=== PATIENT | male | born 1985 | race Caucasian/White ===

== ENCOUNTER 2017-01-25 07:05 | Emergency (ER) | payer BC ==
[2017-01-25 07:17] VITALS: BP 117/78
[2017-01-25] MEDS ORDERED: Naproxen TAB* 250 MG PO ONE (07:30)
--- NOTE | 2017-01-25 07:30 | UC ---
Back Pain HPI - HPI Summary HPI Summary: 31 yo male with progressively worsening back pain over the past month or so. Does a lot of lifting at work and bending /twisting/lifting increases his pain Now no relief with motrin past few nights unable to sleep due to pain no leg pain no bowel or bladder dysfunction Hx of spinal stenosis - History of Current Complaint Stated Complaint: BACK PAIN Hx Obtained From: Patient Onset/Duration: Gradual Onset, Lasting Weeks Timing: Constant Severity Initially: Mild Severity Currently: Severe Pain Intensity: 8 Pain Scale Used: 0-10 Numeric Back Pain: Is Diffuse Character: Aching, Throbbing, Spasmodic, Stiffness Aggravating: Movement, Lifting, Bending Alleviating: Rest Associated Signs And Symptoms: Positive: Negative - Risk Factors AAA Risk Factors: Negative TAD Risk Factors: Negative Cauda Equina Risk Factors: Negative Epidural Abscess Risk Factors: Negative - Allergies/Home Medications Allergies/Adverse Reactions: Allergies Allergy/AdvReac Type Severity Reaction Status Date / Time Penicillins Allergy Mild Unknown Verified 01/25/17 07:17 Reaction Details PMH/Surg Hx/FS Hx/Imm Hx Previously Healthy: Yes Endocrine History Of: Denies: Diabetes, Thyroid Disease Cardiovascular History Of: Denies: Cardiac Disorders, Hypertension Respiratory History Of: Denies: COPD, Asthma GI/ History Of: Reports: Kidney Stones - LONG TIME AGO Denies: Ulcer - Surgical History Surgical History: Yes Surgery Procedure, Year, and Place: Umbilical hernia - Family History Known Family History: Positive: Diabetes Negative: Cardiac Disease, Hypertension - Social History Alcohol Use: Rare Substance Use Type: None Smoking Status (MU): Never Smoked Tobacco Review of Systems Constitutional: Negative Skin: Negative Eyes: Negative ENT: Negative Respiratory: Negative Cardiovascular: Negative Gastrointestinal: Negative Genitourinary: Negative Motor: Negative Neurovascular: Negative Musculoskeletal: Arthralgia, Myalgia Neurological: Negative Psychological: Negative All Other Systems Reviewed And Are Negative: Yes Physical Exam Triage Information Reviewed: Yes Appearance: Well-Appearing, No Pain Distress, Well-Nourished Vital Signs: Initial Vital Signs Temp 98.3 F 01/25/17 07:10 Pulse 84 01/25/17 07:10 Resp 18 01/25/17 07:10 BP 117/78 01/25/17 07:10 Pulse Ox 97 01/25/17 07:10 Vital Signs Reviewed: Yes Eyes: Positive: Conjunctiva Clear ENT: Positive: Hearing grossly normal. Negative: Nasal congestion, Nasal drainage, Trismus, Muffled/hoarse voice Neck: Positive: Supple, Nontender Respiratory: Positive: Lungs clear, Normal breath sounds, No respiratory distress, No accessory muscle use Cardiovascular: Positive: RRR, No Murmur Musculoskeletal: Positive: ROM Intact, No Edema Neurological: Positive: Alert Psychological Exam: Normal Skin Exam: Normal Back Pain Course/Dx - Differential Dx/Diagnosis Provider Diagnoses: rhomboid strain/spasm. lumbar myofascial strain/spasm Discharge - Discharge Plan Condition: Stable Disposition: HOME Prescriptions: Cyclobenzaprine TAB* [Flexeril TAB*] 5 mg PO TID PRN #30 tab PRN Reason: Spasms HYDROcodone/ACETAMIN 5-325 MG* [[place] 5-325 TAB*] 1 tab PO Q4H PRN #14 tab MDD 2 PRN Reason: Pain - Severe Naproxen [Naproxen 500 MG TABS] 500 mg PO BID PRN #30 tab PRN Reason: Pain Patient Education Materials: Low Back Strain (ED) Forms: *Work Release Referrals: Qi Ann MD [Medical Doctor] - 1 Week Additional Instructions: PT consult schedule a follow up appt with your MD Images Front/Back of Body, Lg ([place]): 1 - bilateral rhomboid and paraspinous muscle spasm, tenderness. decrease ROM ( especially flexion/twisting and side bending. (-) SLR, DTRs equal bilaterally
== END 2017-01-25 07:45 | disposition home or self-care (01) ==
LOC: UCEAST 07:05
DX: S46.919A Strain of unspecified muscle, fascia and tendon at shoulder and upper arm level, unspecified arm, initial encounter (principal); S39.012A Strain of muscle, fascia and tendon of lower back, initial encounter; X50.9XXA Other and unspecified overexertion or strenuous movements or postures, initial encounter; Y93.9 Activity, unspecified; Y92.9 Unspecified place or not applicable; M62.830 Muscle spasm of back; Z88.0 Allergy status to penicillin; Z87.442 Personal history of urinary calculi
CPT/HCPCS: 99212; A9270-GY; G0463

== ENCOUNTER 2018-07-12 00:11 | Emergency (ER) | payer BC, OTHER ==
[2018-07-12] MEDS ORDERED: Ondansetron ODT TAB* 4 MG PO ONE (00:38)
[2018-07-12] MEDS ORDERED: Ketorolac INJ* 15 MG/ML 1 ML VIAL IM ONE (00:38)
[2018-07-12 00:54] LABS: ABS Basophils 0 10^3/ul (0-0.2); ABS Eosinophils 0.1 10^3/ul (0-0.6); ABS Lymphocytes 1.8 10^3/ul (1.0-4.8); ABS Monocytes 0.6 10^3/ul (0-0.8); ABS Neutrophils 7.3 10^3/ul (1.5-7.7); ABS Nucleated RBC 0 10^3/ul; Eosinophil % 1.3 % (0-6); Hematocrit 47 % (42-52); Hemoglobin 16.3 g/dl (14.0-18.0); Lymphocyte % 18.4 % (25-47); Mean Corpuscular HGB Conc 35 g/dl (31-36); Mean Corpuscular Hemoglobin 29 pg (27-31); Mean Corpuscular Volume 82 fL (80-94); Mean Platelet Volume 9.6 um3 (7.4-10.4); Nucleated Red Blood Cells % 0.2; Platelet Count 129 10^3/ul (150-450); Red Blood Count 5.68 10^6/ul (4.00-5.40); Red Cell Distribution Width 13 % (10.5-15); White Blood Count 9.8 10^3/ul (3.5-10.8)
--- NOTE | 2018-07-12 00:58 | ED ---
Abdominal Pain/Male - HPI Summary HPI Summary: This patient is a 33 year old M presenting to [facility] accompanied by his with a chief complaint of sudden onset RLQ pain since 23:40. At onset, the patient rates the pain was 10/10 in severity but he reports that it has improved since arrival. The patient rates the pain 5/10 in severity. Symptoms aggravated by nothing. Symptoms alleviated by nothing. Patient reports nausea and vomiting. Patient denies testicular pain. Patient has hx of kidney stones on the left side but notes that these symptoms are different. - History of Current Complaint Chief Complaint: EDAbdPain Stated Complaint: ABD PAIN Hx Obtained From: Patient Onset/Duration: Sudden Onset, Lasting Minutes, Still Present Severity Initially: Moderate - 10/10 pain Severity Currently: Mild Pain Intensity: 5 Pain Scale Used: 0-10 Numeric Location: Discrete At: RLQ Radiates: No Aggravating Factor(s): Nothing Alleviating Factor(s): Nothing Associated Signs And Symptoms: Positive: Nausea, Vomiting - Allergies/Home Medications Allergies/Adverse Reactions: Allergies Allergy/AdvReac Type Severity Reaction Status Date / Time Penicillins Allergy Unknown Verified 07/12/18 00:16 Reaction Details PMH/Surg Hx/FS Hx/Imm Hx Endocrine/Hematology History: Denies: Hx Diabetes, Hx Thyroid Disease Cardiovascular History: Denies: Hx Hypertension Respiratory History: Denies: Hx Asthma, Hx Chronic Obstructive Pulmonary Disease (COPD), Other Respiratory Problems/Disorders GI History: Reports: Hx Gastroesophageal Reflux Disease - POSSIBLE Denies: Hx Ulcer History: Reports: Hx Kidney Stones - LONG TIME AGO Sensory History: Reports: Hx Contacts or Glasses - GLASSES Opthamlomology History: Reports: Hx Contacts or Glasses - GLASSES - Surgical History Surgery Procedure, Year, and Place: Umbilical hernia Hx Anesthesia Reactions: No Infectious Disease History: No Infectious Disease History: Denies: Hx Clostridium Difficile, Hx Hepatitis, Hx Human Immunodeficiency Virus (HIV), Hx of Known/Suspected MRSA, Hx Shingles, Hx Tuberculosis, Hx Known/ Suspected VRE, Hx Known/Suspected VRSA, History Other Infectious Disease, Traveled Outside the [place] in Last 30 Days - Family History Known Family History: Positive: Diabetes Negative: Cardiac Disease, Hypertension - Social History Alcohol Use: Rare Substance Use Type: Reports: None Smoking Status (MU): Never Smoked Tobacco Review of Systems Negative: Fever Negative: Cough Positive: Abdominal Pain - RLQ pain, Vomiting, Nausea Genitourinary: Negative - negative testicular pain Negative: Rash All Other Systems Reviewed And Are Negative: Yes Physical Exam - Summary Physical Exam Summary: Appearance: Well-appearing, Well-nourished, lying in bed comfortably Skin: Warm, dry, no obvious rash Eyes: sclera anicteric, no conjunctival pallor ENT: mucous membranes moist, pharynx appears normal Neck: Supple, nontender Respiratory: Clear to auscultation, no signs of respiratory distress Cardiovascular: Normal S1, S2. No murmurs. Normal distal pulses in tibial and radial bilaterally. Abdomen: Soft, nontender, normal active bowel sounds present, non-distended Musculoskeletal: Normal, Strength/ROM Intact Neurological: A&Ox3, awake and alert, mentation is normal, speech is fluent and appropriate Psychiatric: affect is normal, does not appear anxious or depressed Triage Information Reviewed: Yes Vital Signs On Initial Exam: Initial Vitals Temp Pulse Resp BP Pulse Ox 97.1 F 82 20 121/72 99 07/12/18 00:14 07/12/18 00:14 07/12/18 00:14 07/12/18 00:14 07/12/18 00:14 Vital Signs Reviewed: Yes Diagnostics - Vital Signs Vital Signs Temp Pulse Resp BP Pulse Ox 07/12/18 00:14 97.1 F 82 20 121/72 99 - Laboratory Result Diagrams: 07/12/18 00:46 07/12/18 00:46 Lab Statement: Any lab studies that have been ordered have been reviewed, and results considered in the medical decision making process. Re-Evaluation - Re-Evaluation 1st re-eval Re-Evaluation Time: 03:07 Change: Improved Comment: Patient reports that his pain has improved since his arrival Abdominal Pain Fem Course/Dx - Diagnoses Provider Diagnoses: Renal colic on right side Discharge - Sign-Out/Discharge Documenting (check all that apply): Patient Departure - Discharge Plan Condition: Improved Disposition: HOME Prescriptions: Ondansetron [Zofran Odt] 8 mg PO TID PRN #12 tab.rapdis PRN Reason: Nausea oxyCODONE TAB* [Roxycodone TAB 5 mg*] 5 mg PO Q4H PRN #20 tab MDD 6 tabs PRN Reason: Pain Patient Education Materials: Kidney Stones (ED) Referrals: Alexander Berry MD [Medical Doctor] - - Billing Disposition and Condition Condition: IMPROVED Disposition: Home - Attestation Statements Document Initiated by Petr: Yes Documenting Scribe: Nalini Wolff Provider For Whom Petr is Documenting (Include Credential): Viet Alston MD Scribe Attestation: Nalini Newman, scribed for Viet Alston MD on 07/12/18 at 0542. Scribe Documentation Reviewed: Yes Provider Attestation: The documentation as recorded by the catalinaibe, Nalini Wolff accurately reflects the service I personally performed and the decisions made by me, Viet Alston MD
[2018-07-12 01:12] LABS: EGFR Non-African American 70.2 (>60)
[2018-07-12 02:12] LABS: Urine Appearance Clear; Urine Blood 2+ (Negative); Urine Color Yellow; Urine Ketones Negative (Negative); Urine Protein Negative (Negative); Urine Red Blood Cell 3+(>10/hpf) (Absent); Urine Urobilinogen Negative (Negative); Urine White Blood Cell Absent (Absent)
[2018-07-12] MEDS ORDERED: oxyCODONE TAB* 5 MG TAB PO ONE (04:29)
[2018-07-12] MEDS ORDERED: oxyCODONE TAB* 5 MG TAB ONE (04:30)
[2018-07-12 05:40] VITALS: BP 117/65
== END 2018-07-12 03:30 | disposition home or self-care (01) ==
LOC: ED 00:11
DX: N23 Unspecified renal colic (principal); R11.2 Nausea with vomiting, unspecified; Z87.442 Personal history of urinary calculi; Z88.0 Allergy status to penicillin
CPT/HCPCS: 36415; 80053; 81003; 81015; 83605; 83690; 85025; 96372; 99282; A9270-GY; J1885

== ENCOUNTER 2019-08-12 17:53 | Emergency (ER) | payer OTHER ==
[2019-08-12 18:01] VITALS: BP 128/77
--- NOTE | 2019-08-12 18:03 | UC ---
Abdominal Pain Male HPI - HPI Summary HPI Summary: 34 yo male presents with RLQ abdominal pain. He tells me that yesterday he noticed some intermittent stabbing RLQ pain that was worse with movement. Today his pain has worsened and is more constant. He has a history of kidney stones, but thinks this feels a little different. He is eating and drinking well. Denies fever, SOB, chest pain, n/v, dysuria, or flank pain. He last ate 1 hour ago. - History of Current Complaint Chief Complaint: UCAbdominalPain Stated Complaint: ABD PAIN Time Seen by Provider: 08/12/19 17:58 Hx Obtained From: Patient Onset/Duration: Sudden Onset Severity Initially: Mild Severity Currently: Moderate Pain Intensity: 6 Pain Scale Used: 0-10 Numeric - Allergies/Home Medications Allergies/Adverse Reactions: Allergies Allergy/AdvReac Type Severity Reaction Status Date / Time Penicillins Allergy Unknown Verified 08/12/19 18:01 Reaction Details PMH/Surg Hx/FS Hx/Imm Hx - Additional Past Medical History Additional PMH: None - Surgical History Surgical History: Yes Surgery Procedure, Year, and Place: Umbilical hernia - Family History Known Family History: Positive: Diabetes Negative: Cardiac Disease, Hypertension - Social History Occupation: Employed Full-time Lives: With Family Alcohol Use: Rare Substance Use Type: None Smoking Status (MU): Never Smoked Tobacco Review of Systems All Other Systems Reviewed And Are Negative: No Constitutional: Positive: Negative Skin: Positive: Negative Respiratory: Positive: Negative Cardiovascular: Positive: Negative Gastrointestinal: Positive: Abdominal Pain Genitourinary: Positive: Negative Neurovascular: Positive: Negative Neurological: Positive: Negative Psychological: Positive: Negative Physical Exam - Summary Physical Exam Summary: GENERAL: NAD. WDWN. No pain distress. SKIN: No rashes, sores, lesions, or open wounds. NECK: Supple. Nontender. No lymphadenopathy. CHEST: CTAB. No r/r/w. No accessory muscle use. Breathing comfortably and in no distress. CV: RRR. Without m/r/g. Pulses intact. Cap refill <2seconds ABDOMEN: Mild RLQ TTP at [place]. Soft. No distention or guarding. Mild RIGHT CVA tenderness. Bowel sounds present. Weak positive psoas sign. NEURO: Alert. PSYCH: Age appropriate behavior. Triage Information Reviewed: Yes Vital Signs: Initial Vital Signs Temp 97 F 08/12/19 17:57 Pulse 107 08/12/19 17:57 Resp 16 08/12/19 17:57 BP 128/77 08/12/19 17:57 Pulse Ox 99 08/12/19 17:57 Laboratory Tests 08/12/19 18:17 POC Urine Color Yellow POC Urine Clarity Clear POC Urine pH 5.5 POC Ur Specif [place] 1.025 POC Urine Protein Negative POC Ur Glucose (UA) Negative POC Urine Ketones Negative POC Urine Blood Trace-intact A POC Urine Nitrite Negative POC Urine Bilirubin Negative POC Urine Urobilinogen 0.2 POC U Leukocyte Esteras Negative Vital Signs Reviewed: Yes Diagnostics - Radiology CT ab/pelv Radiology Interpretation Completed By: Radiologist Summary of Radiographic Findings: IMPRESSION: 1. No evidence of obstructive uropathy. There are a few nonobstructing intrarenal calculi right greater than left. 2. Moderate diffuse bladder wall thickening - correlate for possible cystitis. Appendix: No evidence of appendicitis. Normal appendix visualized. Abd Pain Male Course/Dx - Course Course Of Treatment: UA negative. CT as above. Discussed results with pt. No findings today that correlate with his symptoms. He has an appt scheduled for tomorrow with his PCP. Recommend keeping this for recheck. The CT did note some bladder wall thickening - pt has no urinary complaints and UA was negative today. I recommended he discuss this with his PCP tomorrow for possible u/s for further eval. Pt voiced understanding - Differential Dx/Clinical Impression Provider Diagnosis: RLQ abdominal pain Discharge ED - Sign-Out/Discharge Documenting (check all that apply): Patient Departure All imaging exams completed and their final reports reviewed: Yes - Discharge Plan Condition: Stable Disposition: HOME Forms: *Work Release Referrals: No Primary Care Phys,NOPCP [Primary Care Provider] - Additional Instructions: If you develop a fever, shortness of breath, chest pain, new or worsening symptoms - please call your PCP or go to the ED immediately. Please keep your appointment tomorrow with your primary doctor for a recheck. Your CT tonight did not show any findings that correlate with your symptoms tonight. Your CT did show some bladder thickening - I recommend that you discuss this with your primary doctor tomorrow as they may want an ultrasound to further evaluate this. Your urine today did not show any sign of infection. - Billing Disposition and Condition Condition: STABLE Disposition: Home
--- NOTE | 2019-09-08 14:07 | UC ---
- Progress Note Progress Note: Approx 1 week ago I completed an FMLA form for pt regarding the days 08/12-08/14 that he missed work due to abdominal pain. 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 His FMLA paperwork appears to be asking for intermittent time off from 08/12 through 02/2020 due to kidney stones. I discussed with nursing that he should see his PCP or Urology regarding this as I only saw him for a one time acute visit for abdominal pain and gave him, at his request, a work note for the days 08/12-08/14. I filled out the form to indicate that he had intermittent time off from 08/12-08/14/19 Course/Dx - Diagnoses Provider Diagnoses: RLQ abdominal pain Discharge ED - Sign-Out/Discharge Documenting (check all that apply): Post-Discharge Follow Up All imaging exams completed and their final reports reviewed: Yes - Discharge Plan Condition: Stable Disposition: HOME Forms: *Work Release Referrals: No Primary Care Phys,NOPCP [Primary Care Provider] - Additional Instructions: If you develop a fever, shortness of breath, chest pain, new or worsening symptoms - please call your PCP or go to the ED immediately. Please keep your appointment tomorrow with your primary doctor for a recheck. Your CT tonight did not show any findings that correlate with your symptoms tonight. Your CT did show some bladder thickening - I recommend that you discuss this with your primary doctor tomorrow as they may want an ultrasound to further evaluate this. Your urine today did not show any sign of infection. - Billing Disposition and Condition Condition: STABLE Disposition: Home
== END 2019-08-12 19:55 | disposition home or self-care (01) ==
LOC: UCEAST 17:53
DX: R10.31 Right lower quadrant pain (principal); N20.0 Calculus of kidney; Z88.0 Allergy status to penicillin; N32.89 Other specified disorders of bladder
CPT/HCPCS: 74176; 81003; 87086; 99211; G0463